=== PATIENT | female | born 1990 | race Caucasian/White ===

== ENCOUNTER 2018-12-15 12:56 | Emergency (ER) | payer MEDICARE, MEDICAID ==
[~2018-12-15] VITALS: Wt 49.9 kg
== END 2018-12-15 17:24 ==
LOC: ED 12:56
DX: F31.9 Bipolar disorder, unspecified (principal)

== ENCOUNTER 2019-01-26 15:05 | Emergency (ER) | payer MEDICARE, MEDICAID ==
[~2019-01-26] VITALS: Ht 165.1 cm; Wt 68.0 kg
--- NOTE | ~2019-01-26 | EKG ---
[place], [place] ELECTROCARDIOGRAM REPORT NAME: JANINA MOELLER UNIT #: [id number] ROOM: DOCTOR: EPIPHDENAE DRAFT REPORT BIRTHDATE: [birth year] [facility] Test Date: 2019-01-26 Test Time: 16:01:36 Pat Name: JANINA MOELLRE Department: Room: Gender: F Logging Equipment Operator: Karime Kaplan : 1990 Requested By: AKBAR FONSECA Order Number: [id number] Reading MD: Cami Waldron MD Measurements Intervals [place] Rate: 57 P: 11 WY: 136 QRS: 3 QRSD: 116 T: 28 QT: 455 QTc: 443 Interpretive Statements Sinus rhythm Nonspecific intraventricular conduction delay No previous ECG available for comparison Electronically Signed On 01-27-2019 15:30:32 PDT by Cami Waldron MD CM:EKGRPT:ELECTROCARDIOGRAM REPORT 1601 1530 AKBAR RAY DRAFT REPORT AKBAR FONSECA DO
[2019-01-26 16:15] LABS: BASO % 0.5 % (0.0-1.0); EOS # 0.1 10*3/uL (0.0-0.4); EOS % 1.4 % (1.0-4.0); HEMATOCRIT 38.9 % (37.0-47.0); HEMOGLOBIN 13.2 g/dl (12.0-16.0); LYMPH # 2.1 10*3/uL (1.3-4.4); LYMPH % 34.1 % (27.0-41.0); MEAN CELL VOLUME 85.7 fl (81.0-99.0); MEAN CORPUSCULAR HGB 29.1 pg (27.0-31.0); MEAN CORPUSCULAR HGB CONC 33.9 g/dl (33.0-37.0); MEAN PLATELET VOLUME 10.2 fl (9.6-12.3); MONO # 0.6 10*3/uL (0.1-1.0); MONO % 9.6 % (3.0-9.0); NEUT # 3.4 10*3/uL (2.3-7.9); NEUT % 54.2 % (47.0-73.0); PLATELET COUNT AUTOMATED 297 10*3/uL (130-400); RED BLOOD COUNT 4.54 10*6/uL (4.10-5.10); RED CELL DISTRI WIDTH 13.2 % (0-14.5); WHITE BLOOD COUNT 6.3 10*3/uL (4.8-10.8)
[2019-01-26 16:28] LABS: BILIRUBIN 1+ (NEGATIVE); BLOOD 2+ (NEGATIVE); CLARITY CLOUDY (CLEAR); GLUCOSE NEGATIVE (NEGATIVE); KETONE 2+ (NEGATIVE); LEUKO ESTERASE 1+ (NEGATIVE); NITRITE NEGATIVE (NEGATIVE); SPECIFIC GRAVITY 1.025 (1.005-1.030)
[2019-01-26 16:29] LABS: COLOR YELLOW (YELLOW)
[2019-01-26 16:38] LABS: BACTERIA 3+; EPITHELIAL CELLS 21-40
[2019-01-26 16:38] LABS: ALKALINE PHOSPHATASE 132 U/L (45-117); BUN 12 mg/dl (7-24); CHLORIDE 105 mmol/L (98-107); CREATININE 0.92 mg/dL (0.55-1.02); LIPASE 71 U/L (73-393); POTASSIUM 3.5 mmol/L (3.5-5.1); SGOT/AST 17 IU/L (3-35); SGPT/ALT 20 U/L (12-78); SODIUM 141 mmol/L (136-145)
[2019-01-26 16:42] LABS: ACETAMINOPHEN (TYLENOL) < 5.0 ug/ml (10-30); BETA-HCG, QUANT < 1.0 mIU/mL (1-3)
[2019-01-26 16:52] LABS: ETHYL ALCOHOL < 3.0 mg/dl (<3)
[2019-01-26 19:15] LABS: URINE AMPHETAMINES < 1000 (1000ng/ml); URINE BARBITURATES < 200 (200ng/ml); URINE BENZODIAZEPINES < 200 (200ng/ml); URINE CANNABINOIDS (THC) < 50 (50ng/ml); URINE COCAINE < 300 (300ng/ml); URINE METHADONE < 300 (300ng/ml); URINE OPIATES < 300 (300ng/ml); URINE PHENCYCLIDINE < 25 (25ng/ml)
== END 2019-01-26 21:10 | disposition short-term general hospital (02) ==
LOC: ED 15:05
PROVIDERS: Emergency Medicine
DX: F31.9 Bipolar disorder, unspecified (principal); Z88.2 Allergy status to sulfonamides

== ENCOUNTER 2019-06-25 19:30 | Inpatient (IN) | payer MEDICARE ==
[~2019-06-25] VITALS: Ht 175.3 cm; Wt 71.3 kg
--- NOTE | ~2019-06-25 | EKG ---
[place], [place] ELECTROCARDIOGRAM REPORT NAME: JANINA MOELLER UNIT #: [id number] ROOM: [facility] DOCTOR: KAYY DRAFT REPORT BIRTHDATE: [birth year] [facility] Test Date: 2019-06-25 Test Time: 21:22:36 Pat Name: JANINA MOELLER Department: Room: [facility] Gender: F Can Tender: : 1990 Requested By: WHITNEY SCHAEFER Order Number: [id number] Reading MD: Frandy Cervantes MD Measurements Intervals [place] Rate: 70 P: 32 MT: 167 QRS: -2 QRSD: 111 T: 5 QT: 425 QTc: 459 Interpretive Statements Sinus rhythm Electronically Signed On 06-26-2019 10:59:54 PDT by Frandy Cervantes MD CM:EKGRPT:ELECTROCARDIOGRAM REPORT 21 1059 WHITNEY RAY DRAFT REPORT WHITNEY SCHAEFER DO
[~2019-06-25 19:30] MED LIST: HYDROCHLOROTH12.5 M3 PO; HYDROXYZINE HCL25 MG PO; ISIBLOOM 28 DA1 EACH PO; LATU80TA PO; OXCARBAZEPINE600 MG PO; PRAZOSIN HCL1 MG PO; PROTONIX40 MG PO
[2019-06-25 19:32] VITALS: BP 113/77
[2019-06-25 19:48] LABS: BASO % 0.4 % (0.0-1.0); EOS # 0.1 10*3/uL (0.0-0.4); EOS % 1.4 % (1.0-4.0); HEMATOCRIT 35.5 % (37.0-47.0); HEMOGLOBIN 12.1 g/dl (12.0-16.0); LYMPH % 39.3 % (27.0-41.0); MEAN CELL VOLUME 86.8 fl (81.0-99.0); MEAN CORPUSCULAR HGB 29.6 pg (27.0-31.0); MEAN CORPUSCULAR HGB CONC 34.1 g/dl (33.0-37.0); MEAN PLATELET VOLUME 10.3 fl (9.6-12.3); MONO # 0.6 10*3/uL (0.1-1.0); MONO % 7.4 % (3.0-9.0); NEUT % 51.4 % (47.0-73.0); PLATELET COUNT AUTOMATED 277 10*3/uL (130-400); RED BLOOD COUNT 4.09 10*6/uL (4.10-5.10); RED CELL DISTRI WIDTH 13.1 % (0-14.5); WHITE BLOOD COUNT 7.7 10*3/uL (4.8-10.8)
[2019-06-25 20:02] LABS: ALBUMIN 3.6 gm/dl (3.1-4.5); ALKALINE PHOSPHATASE 92 U/L (45-117); BUN 11 mg/dl (7-24); CHLORIDE 105 mmol/L (98-107); CREATININE 1.05 mg/dL (0.55-1.02); POTASSIUM 2.8 mmol/L (3.5-5.1); SGOT/AST 13 IU/L (3-35); SGPT/ALT 16 U/L (12-78); SODIUM 140 mmol/L (136-145); TOTAL PROTEIN 7.2 gm/dL (6.4-8.2)
[2019-06-25 20:03] LABS: BILIRUBIN NEGATIVE (NEGATIVE); BLOOD 2+ (NEGATIVE); CLARITY SL CLOUDY (CLEAR); COLOR YELLOW (YELLOW); GLUCOSE NEGATIVE (NEGATIVE); KETONE NEGATIVE (NEGATIVE); LEUKO ESTERASE NEGATIVE (NEGATIVE); NITRITE NEGATIVE (NEGATIVE)
[2019-06-25 20:06] LABS: ACETAMINOPHEN (TYLENOL) < 5.0 ug/ml (10-30); BETA-HCG, QUANT < 1.0 mIU/mL (1-3); ETHYL ALCOHOL < 3.0 mg/dl (<3)
[2019-06-25 20:13] LABS: URINE AMPHETAMINES < 1000 (1000ng/ml); URINE BARBITURATES < 200 (200ng/ml); URINE BENZODIAZEPINES < 200 (200ng/ml); URINE CANNABINOIDS (THC) < 50 (50ng/ml); URINE COCAINE < 300 (300ng/ml); URINE METHADONE < 300 (300ng/ml); URINE OPIATES < 300 (300ng/ml); URINE PHENCYCLIDINE < 25 (25ng/ml)
[2019-06-25 20:17] LABS: EPITHELIAL CELLS TNTC
[2019-06-25 20:18] LABS: BACTERIA 1+
[2019-06-25 20:29] VITALS: BP 111/75
--- NOTE | 2019-06-25 21:38 | NUR ---
CONSULT CALLED TO [facility], RUBY GUERRERO, FOR DR. AGOSTO. WYATT HEMPHILL RN
[2019-06-25 21:40] VITALS: BP 134/76
--- NOTE | 2019-06-25 21:40 | NUR ---
A 28, admitted to ICCU, under the services of FERNANDO Breen DO with a diagnosis of SUICIDAL/HOMOCIDAL IDEATION AND HYPOKALEMIA. Chief complaint is SUICIDAL IDEATION. Patient arrived via stretcher from ER. Monitor applied. Initial assessment completed. Vital signs taken and recorded. FERNANDO BREEN DO notified of admission to the unit. Orders received. See assessment for past medical history, medications and allergies. Patient and/or family oriented to unit. [facility] visitation policy reviewed. Clothing/patient valuable form completed. WYATT HEMPHILL A
--- NOTE | 2019-06-25 21:55 | NUR ---
MEDS VERIFIED BY PATIENT.
[2019-06-26] VITALS: BP 123/67
[2019-06-26 04:00] VITALS: BP 100/62
[2019-06-26 06:07] LABS: BUN 10 mg/dl (7-24); CHLORIDE 108 mmol/L (98-107); CREATININE 0.73 mg/dL (0.55-1.02); PHOSPHOROUS 3.5 mg/dL (2.5-4.9); POTASSIUM 3.6 mmol/L (3.5-5.1); SODIUM 142 mmol/L (136-145)
[2019-06-26 08:00] VITALS: BP 102/62
--- NOTE | 2019-06-26 09:30 | NUR ---
MESSAGE LEFT ON LAURA HUNTER CELL RETO NEW CONSULT
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
[2019-06-26 12:00] VITALS: BP 107/46
--- NOTE | 2019-06-26 14:10 | NUR ---
AWAITING PREG TEST TO TRASFER PT TO [facility] LAURA VALDIVIA IS WOTKING ON THIS PT HAS BEEN COOPERATIVE, MAKING NO ATTEMP TO HARM SELF, BUT REMAINS VERY MANIPULATIVE
--- NOTE | 2019-06-26 15:04 | NUR ---
REPORT TO KANDY AT [facility]
--- NOTE | 2019-06-26 15:22 | NUR ---
[facility], SINCE PT IS NOT PINK SLIPPED, THEY WILL STOP AND DROP PT OFF IF SHE DECIDED SHE DOES NOT WANT TO GO TO [facility], DR MAURO UPDATED, PT NOW PINK SLIPPED
--- NOTE | 2019-06-26 15:26 | NUR ---
LAURA VALDIVIA NOTIFIED OF PT NOW BEING PINK SLIPPED ANS SHE WILL UPDATE [facility]
--- NOTE | 2019-06-26 15:34 | NUR ---
[facility]
== END 2019-06-26 15:34 | disposition home health service (06) | DRG 641 ==
LOC: ED → EDHOLD 20:35 → ICCU 20:59
PROVIDERS: Student in an Organized Health Care Education/Training Program; ADMIT Internal Medicine
DX: E87.6 Hypokalemia (principal); R45.851 Suicidal ideations; F31.9 Bipolar disorder, unspecified; E83.41 Hypermagnesemia; E87.8 Other disorders of electrolyte and fluid balance, not elsewhere classified; F43.10 Post-traumatic stress disorder, unspecified; K21.9 Gastro-esophageal reflux disease without esophagitis; I10 Essential (primary) hypertension; Z91.5 Personal history of self-harm; Z82.49 Family history of ischemic heart disease and other diseases of the circulatory system; Z83.3 Family history of diabetes mellitus; Z83.49 Family history of other endocrine, nutritional and metabolic diseases; Z88.2 Allergy status to sulfonamides; Z79.899 Other long term (current) drug therapy